=== PATIENT | male | born 1960 | race Caucasian/White ===

== ENCOUNTER → 2024-05-25 | Outpatient (CLI) | payer OTHER, SELFPAY ==
--- NOTE | 2024-05-25 16:30 | RAD_ITS ---
INDICATION: OA EXAMINATION/TECHNIQUE: X-RAY - RIGHT XR Elbow Min 3 Views COMPARISON: No relevant prior comparison study available FINDINGS: SOFT TISSUES: No soft tissue swelling or gas. No radiopaque foreign body. BONES/JOINTS: There is no displacement of the anterior or posterior fat pads. No acute fracture or subluxation. Normal alignment. There are moderate degenerative changes. No sclerotic or destructive changes observed. RAD/Elbow min 3 Views IMPRESSION: Degenerative changes. Electronically Signed: Criselda Bunn MD at 17:31 EDT ,
--- NOTE | 2024-05-25 16:30 | RAD_ITS ---
HISTORY: OA. TECHNIQUE: XR Foot Min 3 Views. COMPARISON: None. FINDINGS: BONES : No acute fracture identified. Calcaneal spurs with soft tissue swelling of the heel. JOINTS: No dislocation. Mild degenerative change. Osteophytes with chronic ossification laterally. RAD/Foot min 3 Views IMPRESSION: No acute fracture or dislocation identified in the left foot. Degenerative change. Calcaneal enthesopathy. Soft tissue swelling. Electronically Signed: Indy Jones MD at 10:28 EDT ,
--- NOTE | 2024-05-25 16:30 | RAD_ITS ---
STUDY: X-RAY - RIGHT ANKLE REASON FOR EXAM: Male, 63 years old. Pain and stiffness TECHNIQUE: 3 view(s) of the ankle. COMPARISON: None. FINDINGS: Normal visualized distal tibia and fibula. Normal medial and lateral malleoli. Normal tibiotalar articulation and ankle mortise. Normal visualized talus. Prominent calcaneal spurs The visualized subtalar, talonavicular, calcaneocuboid and tarsal articulations are normal. Posterior soft tissue swelling RAD/Ankle min 3 Views IMPRESSION: Prominent calcaneal spurs with posterior soft tissue swelling. No demonstrated fracture or suspicious osseous lesion Electronically Signed: Josesito Nolasco MD at 18:00 EDT ,
--- NOTE | 2024-05-25 16:30 | RAD_ITS ---
EXAM: XR RIGHT FOOT COMPLETE, 3 OR MORE VIEWS CLINICAL INDICATION: OA TECHNIQUE: Frontal, lateral and oblique views of the right foot. COMPARISON: No relevant prior studies available. FINDINGS: BONES/JOINTS: No acute fracture or subluxation. No periarticular erosion or demineralization to suggest inflammatory arthritis. Prominent posterior calcaneal enthesopathy. SOFT TISSUES: Focal soft tissue swelling adjacent to the fifth MTP joint. No radiopaque foreign body. RAD/Foot min 3 Views IMPRESSION: No acute bone or joint abnormality. As above. Electronically Signed: David Lopez MD at 11:31 EDT ,
--- NOTE | 2024-05-25 16:30 | RAD_ITS ---
HISTORY: OA. TECHNIQUE: XR Ankle Min 3 Views. COMPARISON: None. FINDINGS: BONES : No acute fracture identified. Calcaneal enthesopathy present with soft tissue swelling of the heel. JOINTS: No dislocation. Mild degenerative change with osteophytes at the ankle. RAD/Ankle min 3 Views IMPRESSION: Mild degenerative changes of the left ankle without acute fracture or dislocation identified. Calcaneal spurs with soft tissue swelling of the heel. Electronically Signed: Indy Jones MD at 10:26 EDT ,
--- NOTE | 2024-05-25 16:30 | RAD_ITS ---
HISTORY: OA. TECHNIQUE: XR Knee 3 Views. COMPARISON: None. FINDINGS: BONES : No acute fracture identified. Small osteophytes noted. JOINTS: No dislocation. Joint spaces maintained. Mild joint effusion. RAD/Knee 3 Views IMPRESSION: No acute fracture or dislocation identified in the left knee. Mild joint effusion with very mild degenerative change. Electronically Signed: Indy Jones MD at 10:28 EDT ,
== END | disposition home or self-care (01) ==
LOC: RAD 16:23
PROVIDERS: PCP Family Medicine Geriatric Medicine; Referring Provider Family Medicine Geriatric Medicine; Visit Provider Family Medicine Geriatric Medicine
DX: M19.071 Primary osteoarthritis, right ankle and foot (principal); B35.1 Tinea unguium; M25.521 Pain in right elbow; M25.562 Pain in left knee
CPT/HCPCS: 73080; 73562; 73610; 73630

== ENCOUNTER → 2024-06-30 | Outpatient (CLI) | payer OTHER, SELFPAY ==
--- NOTE | 2024-06-30 07:32 | MRI_ITS ---
INDICATION: pain, rule out ACL or meniscus tear, LT KNEE PAIN AND WEAKNESS EXAMINATION: MRI - LEFT MR LE Joint W/O Contrast TECHNIQUE: Multiplanar and multisequence MR images of the LEFT knee. IV Contrast Dosage and Agent: None. COMPARISON: Prior study dated: Knee Radiographs from 05/25/2024 FINDINGS: BONE: There is marrow edema along the medial tibial plateau. No fracture line identified. There is also marrow edema seen anteriorly with cyst formation at the medial femoral condyle. JOINT: Moderate joint effusion. No synovial thickening. MUSCLES: Unremarkable. MENISCI: There is a complex tear at the posterior horn of the medial meniscus. There is associated extrusion of the medial meniscal body, extending 0.4 cm from the margin of the bone. The lateral meniscus is intact. CRUCIATE LIGAMENTS: Anterior and posterior cruciate ligaments are intact. COLLATERAL LIGAMENTS: Medial collateral ligament and lateral collateral ligamentous complex, inclusive of the popliteal tendon, are intact. CARTILAGE: Mild chondral thinning at the medial compartment. Cartilage loss at the medial femoral condyle and the region of the trochlea with underlying cyst formation. OTHER SOFT TISSUES: Meng''s cyst identified measuring approximately 2.8 x 1 x 2.7 cm. MRI/Lower Ext Joint Only (Routine) IMPRESSION: Complex tear of the posterior horn of the medial meniscus with medial body extrusion. No ligamentous tear. Mild marrow edema of the medial tibial plateau. Mild degenerative change at the medial compartment. Cyst formation with cartilage loss at the medial femoral condyle. Electronically Signed: Omid Whitehead MD at 9:08 EDT ,
[2024-06-30 08:19] LABS: ALB/GLOB Ratio 0.9 RATIO (0.9-2.4); AST(SGOT) 21 U/L (15-37); Alanine Aminotransfer ALT/SGPT 26 U/L (16-61); Albumin, Serum 3.6 g/dL (3.2-5.0); Alkaline Phosphatase 96 U/L (45-117); Anion Gap 5 (5-15); BUN 17 mg/dL (7-18); Calcium,Total 8.7 mg/dL (8.5-10.1); Chloride 107 mmol/L (98-107); Creatinine, Serum 1.31 mg/dL (0.70-1.30); EST Glomerular Filtration Rate 59 mL/min (>60); Est Glom Filt Rate - Afr Amer 71 mL/min (>60); Globulin 3.8 g/dL (2.2-4.2); Glucose 106 mg/dL (74-106); Potassium 3.7 mmol/L (3.5-5.1); Protein, Total 7.4 g/dL (6.4-8.2); Sodium Level 138 mmol/L (136-145)
[2024-07-02 06:37] LABS: PSA, Free 1.35 ng/mL; PSA, Free % 17.2 % (.)
== END | disposition home or self-care (01) ==
PROVIDERS: PCP Family Medicine Geriatric Medicine; Referring Provider Orthopaedic Surgery Sports Medicine; Visit Provider Orthopaedic Surgery Sports Medicine
DX: E78.5 Hyperlipidemia, unspecified (principal); R97.20 Elevated prostate specific antigen [PSA]
CPT/HCPCS: 36415; 73721; 80053; 84153; 84154

== ENCOUNTER 2024-07-17 08:31 | Outpatient (RCR) | payer OTHER, SELFPAY ==
--- NOTE | 2024-07-19 16:22 | HP.PTEVAL_ITS ---
Patient's Visit Information Visit Information Visit Information: ROMAN WHITTEN is a 63 year old M referred to Physical Therapy by Dr. Dav Richter MD with a diagnosis of L knee pain. Date of Evaluation: 07/17/24 Physical Therapist: Emiliano Monahan DPT Visit Plan Frequency: 1x/Week Duration: 6 Weeks Plan: I gave Roman some strengthening and stretching exercises of both quads and HS as well as hip abductor strengthening. Pt. is to complete on own at home and come back to PT if not improving. Subjective Subjective: Pt. is here today for his initial evaluation with diagnosis of L knee pain. Pt. did have an MRI showing a complex posterior horn meniscal tear. 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 Pt. stepping in a hole in may and caused him to short step on his L leg. He felt a pop. Later than month he tried to jog and had intense pain. Pt. reports now he doesn't really have much pain, unless he deep squats. No pain at rest. 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 No N/T noted either. Pt. is hopeful to get back to doing all work related activities without intermittent pain. Objective Objective: POSTURE: Pt. has farily normal posture in stance. Pt. has increased B knee varus postioning. He has very high arches in B feet. with increased supination noted. Normal wt. shifting between BLEs. PALPATION: Pt. has mild soreness at posterior medial knee compartment, but mini mal. Pt. toro some slight swelling throughout L knee. NEURO: Normal sensation and DTR of BLEs. Pt. is able to rise on heels and toes without issues. ROM: L knee 0-0-124deg. Pt. has good HS length, slight tightness in his L quad. R knee: 0-0-128deg. Pt. has normal HS length. MMT: pt. has good strength throughout BLEs. No marked weakness noted. GAIT: Pt. has fairly normal, He does have slight increase in B foot supination during stance phase. STIARS: Normal throughout. Balance/Special Test Scores Lower Extremity Functional Score: 71 Goals Goal 1:: LTG: Pt. to be I with HEP. Goal Time Frame: 2-4 Weeks Goal 2:: LTG: Pt. to be able to work without increase in L knee pain Goal Time Frame: 2-4 Weeks Goal 3:: LTG: Pt. to complete all recreational activities without limitations. Goal Time Frame: 2-4 Weeks Rehabilitation Potential Physical Therapy Diagnosis: Pt. has signs and symptoms consistent with L knee pain secondary to L posterior horn meniscal tear. Pt. has overall good strength in his LEs and decent ROM. Pt. does have some increased stability at his ankles along with very high arches. Pt. has signs and some hypomobility, but more so intermittent medial knee pain. Rehabilitation Potential: Excellent Anticipated Interventions Patient/Client Instruction: Educate patient on: Condition, Plan of Care, Risk Factors and Benefits of Fitness Program For the Purpose of:: To improve self management, To prevent re-injury, To improve ability to perform tasks related to life management and To improve tolerance to ADL's Therapeutic Exercise to Include: Strength training, Power training, Flexibilty training, Passive ROM and Active ROM For the Purpose of:: To decrease pain, To decrease swelling/inflammation, To increase ROM, To improve nutrient delivery to tissue, To increase oxygenation perfusion, To improve muscle performance and motor function and To increase flexibility/ROM Text: Thank you for the opportunity to evaluate your patient. For Medicare and Medicare HMO plans, please review the plan of care and approve it. It will need to be FAXED BACK to us at [phone] for Medicare purposes. For Medicare only, by signing this I certify the plan of care. Please let me know if there are questions or concerns regarding this plan of care. Physician Signature: Date:
== END 2024-07-17 19:00 | disposition home or self-care (01) ==
LOC: PT 08:31
PROVIDERS: PCP Family Medicine Geriatric Medicine; Referring Provider Orthopaedic Surgery Sports Medicine; Visit Provider Orthopaedic Surgery Sports Medicine
DX: S83.242D Other tear of medial meniscus, current injury, left knee, subsequent encounter (principal); M17.12 Unilateral primary osteoarthritis, left knee; M25.562 Pain in left knee
CPT/HCPCS: 97161

== ENCOUNTER → 2024-08-07 | Outpatient (CLI) | payer OTHER, SELFPAY ==
--- NOTE | 2024-08-07 08:07 | MRI_ITS ---
EXAMINATION: MR Prostate WO/W Contrast COMPARISON: None CLINICAL HISTORY: 63 yo M with elevated PSA. Most recent PSA = 4.1 ng/ml on 06/02/2024 TECHNIQUE: Standard prostate MR protocol was used before and after administration of 22 cc of IV Clariscan. FINDINGS: Prostate volume: 92 cc PSA density: 0.04 ng/ml2 Length of membranous urethra: 20 mm Post-biopsy hemorrhage: Yes Multiparametric MR evaluation: Heterogeneous appearance of the central gland is consistent with benign prostatic hyperplasia. Lesion 1: LOCATION - in the left posterior peripheral zone at mid gland there is a irregularly-shaped focal T2 hypointensity measuring approximately 1.3 x 0.8 x 1.4 cm. It is mild to moderately bright on DWI and moderately dark on ADC map. T2 - 3 DWI - 3 DCE - inconclusive Overall PI-RADS v2 score = 3 Capsular margin and neurovascular bundle: Not involved Seminal vesicles: Not involved. Lymph nodes: No lymphadenopathy in the field of view. Bones: No suspicious lesions in the field of view. MRI/Pelvis W/WO Contrast IMPRESSION: 1.4 cm KY-3 lesion in the left posterior PZ at mid gland. - No evidence of macroscopic extracapsular extension. - No evidence of seminal vesicle invasion. - No lymphadenopathy. - No suspicious bone lesions. Benign prostatic hyperplasia. Electronically Signed: Grady Smith MD at 11:45 EDT ,
[2024-08-07 08:38] LABS: CREATININE FINGERSTICK 1.3 mg/dL (0.70-1.30); EGFR FINGERSTICK > 60.0000 mL/min (>60)
== END | disposition home or self-care (01) ==
PROVIDERS: PCP Family Medicine Geriatric Medicine; Referring Provider Urology; Visit Provider Urology
DX: R97.20 Elevated prostate specific antigen [PSA] (principal)
CPT/HCPCS: 72197; A9575

== ENCOUNTER → 2024-11-27 | Outpatient (CLI) | payer OTHER, SELFPAY ==
[2024-11-27 09:52] LABS: Absolute Neutrophil Count 2.2 X10^3/uL (2.0-7.7); Basophil# 0.05 X10^3/uL; Basophil% 1.2 % (0-1); Eosinophil# 0.11 X10^3/uL; Eosinophils% 2.6 % (0-5); Hematocrit 50.2 % (40-54); Hemoglobin 16.4 g/dL (13.0-16.5); Lymphocyte % 28.7 % (19-41); Mean Corp Hgb Conc 32.7 g/dL (32-36); Mean Corpuscular Hgb 27.8 pg (27.0-32.0); Mean Corpuscular Volume 85.1 fL (80-94); Mean Platelet Vol. 10.5 fl (6.2-12.0); Monocyte# 0.58 X10^3/uL; Monocyte% 13.9 % (0-10); NRBC Flagged by Analyzer 0 % (0-5); Neutrophil # 2.23 X10^3/uL (2.7-7.7); Neutrophil % 53.4 % (47-70); Platelet Count 226 K/mm3 (150-450); RBC Distribution Width CV 13.2 % (11.6-14.6); RBC Distribution Width SD 40.8 fl (35.1-43.9); White Blood Count 4.2 K/mm3 (4.4-11.0)
[2024-11-27 10:25] LABS: ALB/GLOB Ratio 0.9 RATIO (0.9-2.4); AST(SGOT) 26 U/L (15-37); Alanine Aminotransfer ALT/SGPT 40 U/L (16-61); Albumin, Serum 3.6 g/dL (3.2-5.0); Alkaline Phosphatase 98 U/L (45-117); Anion Gap 4 (5-15); BUN 13 mg/dL (7-18); BUN/Creat Ratio 11.1 RATIO (10-20); Calcium,Total 8.9 mg/dL (8.5-10.1); Chloride 107 mmol/L (98-107); Cholesterol 227 mg/dL (200); Creatinine, Serum 1.17 mg/dL (0.70-1.30); EST Glomerular Filtration Rate 67 mL/min (>60); Est Glom Filt Rate - Afr Amer 81 mL/min (>60); Globulin 4.1 g/dL (2.2-4.2); Glucose 94 mg/dL (74-106); High Density Lipoprotein 51 mg/dL; Potassium 4.2 mmol/L (3.5-5.1); Protein, Total 7.7 g/dL (6.4-8.2); Sodium Level 139 mmol/L (136-145); Triglycerides 158 mg/dL; Very Low Density Lipoprotein 32 mg/dL (5-40)
== END | disposition home or self-care (01) ==
PROVIDERS: PCP Family Medicine Geriatric Medicine; Visit Provider Family Medicine Geriatric Medicine
DX: E78.5 Hyperlipidemia, unspecified (principal); R53.83 Other fatigue
CPT/HCPCS: 36415; 80053; 80061; 84443; 85025

== ENCOUNTER 2024-12-20 05:56 | Day surgery (SDC) | payer OTHER, SELFPAY ==
[2024-12-20] VITALS (8 sets, daily range): BP systolic 119–138; BP diastolic 81–92; PULSE 72–89; RESP 12–16; TEMP 36.2–36.8; O2SAT 94–100; BMI 32.5
--- NOTE | 2024-12-20 06:30 | EKG12_ITS ---
Test Reason : PRE OP Blood Pressure : */* mmHG Vent. Rate : 77 BPM Atrial Rate : 77 BPM P-R Int : 168 ms QRS Dur : 112 ms QT Int : 380 ms P-R-T Axes : 47 49 27 degrees QTcB Int : 430 ms Normal sinus rhythm Incomplete right bundle branch block Borderline ECG No previous ECGs available Confirmed by Jorge Alberto Rankin ([id number]), greeting card editor BARTOLOME PRECIADO ([id number]) on 12/25/2024 10:49:03 AM Referred By: Ryder Parada Confirmed By: Jorge Alberto Rankin
[2024-12-20] MEDS: 0.9% Normal Saline (1000mL) 1,000 ML 15 ML IV (06:31)
--- NOTE | 2024-12-20 07:12 | PCM.HP.STD ---
HPI - General General Date of Admission: 12/20/24 Date of Service: 12/20/24 Chief Complaint: Umbilical hernia HPI Narrative ROMAN WHITTEN, is a 64 M who presents for elective repair of an umbilical hernia. He was recently seen in the office. Seems to be a fairly small hernia amenable to primary repair [facility] Medical History Prostate disease Arthritis Non-smoker History of pain when walking Osteoarthritis of left knee Tear of medial meniscus of left knee Left knee pain Home Medications ?Medication ?Instructions ?Recorded ?Last Taken ?Type NK 12/07/24 Unknown History Allergy/AdvReac Type Severity Reaction Status Date / Time No Known Allergies Allergy Verified 12/13/24 10:18 Family History Father Diabetes Heart disease Mother Rheumatoid arthritis Surgical History Hx of colonoscopy H/O kidney donation Social History household members: spouse Smoking Status: Never smoker alcohol intake: never Vital Signs Vital Signs Vital Signs: 12/20/24 06:22 12/20/24 06:22 Temperature 98.3 F Temperature Source Temporal Pulse Rate 82 Respiratory Rate 16 Respiratory Pattern Normal Blood Pressure 138/92 H Blood Pressure Mean 107 Blood Pressure Source Monitor Blood Pressure Position Supine Blood Pressure Location Right Arm Pulse Ox 100 Oxygen Delivery Method Room Air Weight Weight: 246 lb 14.684 oz Body Mass Index (BMI) 32.5 Physical Exam Narrative He is alert and oriented x 3. He is in no acute distress. Abdomen is soft, nontender nondistended. Hernia is reduced with the patient laying supine Assessment & Plan Assessment/Plan (1) Umbilical hernia: PLAN: Plan The patient is a 64-year-old male with an umbilical hernia. I have offered him umbilical hernia repair. We discussed the details of the planned procedure and he wishes to proceed. Surgery will begin momentarily
--- NOTE | 2024-12-20 07:15 | PRE.ANES_ITS ---
ASA Classification* ASA Classification ASA Classification: 2 Assessment & Plan Anesthesia* Anesthesia Assessment Anesthesia Assessment: Discussed sedation and/or anesthesia options, risks, benefits, and alternatives with patient/parents/legal guardian/POA. Questions invited. The patient/parents/legal guardian/POA seems to understand and agrees to proceed with anesthesia plan. Reviewed the physical assessment, medical history, allergy history and patient home medications list prior to surgery/procedure/anesthetic and documented any changes. Performed airway and anesthesia risk assessments. Anesthesia Type Anesthesia Type: General History Source History Obtained from:: Patient and Chart Anesthesia Focused Assessment* Temperature: 98.3 F Pulse Rate: 82 Blood Pressure: 138/92 Respiratory Rate: 16 Pulse Ox: 100 Oxygen Delivery Method: Room Air Airway Assessment Mouth opens: >3 cm Mallampati Score: III Teeth Condition: Intact Neck Range of motion (ROM): Full ROM Focused Labs Anesthesia Preop lab: CBC WBC 4.2 K/mm3 (4.4-11.0) L 11/27/24 09:43 11/27/24 RBC 5.90 M/mm3 (4.6-6.2) 11/27/24 09:43 11/27/24 Hgb 16.4 g/dL (13.0-16.5) 11/27/24 09:43 11/27/24 Hct 50.2 % (40-54) 11/27/24 09:43 11/27/24 Plt Count 226 K/mm3 (150-450) 11/27/24 09:43 11/27/24 CHEMISTRY Potassium 4.2 mmol/L (3.5-5.1) 11/27/24 09:43 11/27/24 Sodium 139 mmol/L (136-145) 11/27/24 09:43 11/27/24 BUN 13 mg/dL (7-18) 11/27/24 09:43 11/27/24 Creatinine 1.17 mg/dL (0.70-1.30) 11/27/24 09:43 11/27/24 Glucose 94 mg/dL (74-106) 11/27/24 09:43 11/27/24 TSH 1.830 uIU/mL (0.358-3.740) 11/27/24 09:43 11/02 05/25 COAG Pre-Assessment Diagnosis/Proposed Procedure Planned Operative Procedure(s): OPEN UMBICIAL HERNIA REPAIR Anesthesia History 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 When Was Last Pacemaker Check QUESTION #4 FULL TEXT: You/Your Family Experience fever (hyperthermia) with Anesthesia Last Oral Intake Last Oral intake: Last Oral Intake NPO since 02:00 12/20/24 06:22 Meds taken in AM with sips of No 12/20/24 06:22 water? Meds patient instructed to take am of surgery PONV PONV - coal weigher: PONV - coal weigher Female No 12/13/24 10:20 HX of Motion Sickness No 12/13/24 10:20 HX of N/V After Surgery No 12/13/24 10:20 Non-Smoker Yes 12/13/24 10:20 Duration of Surgery greater Yes 12/13/24 10:20 than 60 minutes Number of Risk Factors 2 12/13/24 10:20 PONV Score Moderate Risk 12/13/24 10:20 Height & Weight Height & Weight: Anesthesia: Height & Weight Height 6 ft 1 in 12/20/24 06:22 Weight: 112 kg 12/20/24 06:22 Body Mass Index (BMI) 32.5 12/20/24 06:22 Respiratory Assessment Respiratory Assessment - coal weigher: Respiratory Tract Infection Hx - coal weigher Hx Respiratory Tract Infection No 12/13/24 10:20 STOP Sleep Apnea STOP Sleep Apnea - coal weigher: STOP Sleep Apnea - coal weigher Hx Hypertension No 12/13/24 10:20 Hx Sleep Apnea No 12/13/24 10:20 CPAP BIPAP Do you snore loudly (louder Yes 12/13/24 10:20 than talking or can be heard Do you often feel tired/ No 12/13/24 10:20 fatigued/ sleepy during daytime? Has anyone observed you stop No 12/13/24 10:20 breathing during sleep? STOP Results Negative 12/13/24 10:20 QUESTION #5 FULL TEXT : Do you snore loudly (louder than talking or can be heard through closed doors)? 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 Specify any problems Hx of Preganancy in last 3 N/A 12/13/24 10:20 Months Nurse Filling Out Transfusion DSCHRIBER 12/13/24 10:20 & Questions: Date: 12/13/24 12/13/24 10:20 Time: 10:21 12/13/24 10:20 Patient unable to answer at this time (ie. confused, unrespo /Reproduction History /Reproductive History - coal weigher: /Reproductive Hx- coal weigher Hx Now No 12/13/24 10:20 Gestational Age (in weeks): EDC: Hx Hx Para Hx Section SAB No 12/13/24 10:20 Active Medications Active Medications: Current Medications Generic Name Dose Route Start Last Admin Trade Name Freq PRN Reason Stop Dose Admin Sodium Chloride 1,000 mls @ 15 mls/hr 12/20/24 06:20 12/20/24 06:31 IV 12/25/24 19:39 15 mls/hr .Q48H JAYANT Administration Protocol PFSH Medical History Prostate disease Arthritis Non-smoker History of pain when walking Osteoarthritis of left knee Tear of medial meniscus of left knee Left knee pain Home Medications ?Medication ?Instructions ?Recorded ?Last Taken ?Type NK 12/07/24 Unknown History Allergy/AdvReac Type Severity Reaction Status Date / Time No Known Allergies Allergy Verified 12/13/24 10:18 Family History Father Diabetes Heart disease Mother Rheumatoid arthritis Surgical History Hx of colonoscopy H/O kidney donation Social History household members: spouse Smoking Status: Never smoker alcohol intake: never Review of Systems (Anesthesia) ROS Narrative System reviewed and no additional complaints, except as documented.
--- NOTE | 2024-12-20 07:30 | HERN_PTH ---
PATIENT: ROMAN WHITTEN LOC: [facility] – [place] U#:[id number] AGE/SX: 64/M ROOM: RE12/20/[address]: Dr. Ryder Parada MD : 1960 BED: DIS: 12/20/2024 SPEC #: [id number] RECD: 12/20/24 11:03 STATUS: IRON RERico #: [id number] BETO: 12/20/24 07:[address]: Ryder Parada DEPT: SURGICAL PATHOLOGY RECD BY: Melissa Hamilton ENTERED: 12/20/24 12:10 SP TYPE: Hernia OTHR DR: Dr. Willie Cárdenas MD Tissues: HERNIA Procedures: Surgery Specimen Level II HEADER OPERATION: Hernia, umbilical repair PRE-OP DIAGNOSIS: Umbilical hernia TISSUE SUBMITTED: Hernia sac MICROSCOPIC DIAGNOSIS Hernia sac: A piece of fibroadipose and fibroconnective tissue, consistent with hernia sac with reactive changes. SJ.mr 12/21/2024 MICROSCOPIC DESCRIPTION Slides are reviewed. GROSS DESCRIPTION Received in fixative is one container labeled with the patient's name and designated Hernia sac. The specimen consists of an irregular piece of yellow adipose tissue measuring 4.2 x 1.5 x 1cm. No mass lesion is identified. Piercing Specialist sections are submitted in one cassette. EMY. 12/20/2024 TC:5 CPT:08545
[2024-12-20] MEDS: Bupiv/Epi 0.25% 30 ML Vial (07:52)
--- NOTE | 2024-12-20 08:00 | DCINST_ITS ---
Discharge Instructions Diet Discharge Diet: Light diet - advance as tolerated Activity Discharge Activity: Return to Normal Activity and May Shower May shower in (days): 1 Ice area for (Minutes): 30 Lifting Restrictions: No lifting over 20 pounds for 6 weeks Dressing / Incision Call your doctor if your incision/area has: Continuous Slow Oozing, Sudden In creased Bleeding, Increased Pain/ Swelling, Increased Redness, Foul Smelling Discharge and Swelling at the incision site Call your doctor if you observe: Fever of 101 or Higher Cleanse incision/area with: Soap & Water Drain: [place] Additional Dressing/Incision Instructions:: wear binder for comfort; remove dressing before first shower Follow Up Care Please Follow Up With: Ryder Parada MD When: 2 weeks Test Results: Test results from this visit will be discussed in further detail at your follow- up appointment, if applicable. Discharge Plan Admission Primary Reason for Your Visit: umbilical hernia repair Attending Provider: Ryder Parada Primary Care Provider: Willie Cárdenas Chi Instructions Print Language: Danish Discharge Orders/Prescriptions Prescriptions: New oxycodone-acetaminophen [Percocet] 5-325 mg tablet 1 tab PO Q8H PRN (Reason: pain) 3 Days Qty: 10 0RF Referrals / Follow Up: Willie Cárdenas Chi, MD [Primary Care Provider] - Disposition Disposition (needs filled in before D/C Order can be placed): Home, Self Care
--- NOTE | 2024-12-20 08:04 | OP.PCM_ITS ---
Problems Associated Problem List Diagnoses (1) Umbilical hernia: Procedures Digestive 40xxx-49xxx: 29256 RPR AA HRN 1ST < 3 CM [facility] Operative Report (Standard) Operative Information Date of Procedure: 12/20/24 Pre-Operative Diagnosis: umbilical hernia Post-Operative Diagnosis: umbilical hernia Surgery/Procedure Performed: Open umbilical hernia repair engineering program analyst: Yes Flakeboard Line Tender: Antoinette Sellers Tasks completed by assistant professor in family studies: Closing and Retracting Additional assistant manager of operations?: No Type of Anesthesia: General and Local RN Documented Start/Stop Times: Operation Date: 12/20/24 07:30 Case Time Into Pre-Op 12/20/24 06:16 Out of Pre-Op 12/20/24 07:25 Anesthesia Start 12/20/24 07:28 Into Room 12/20/24 07:28 Procedure Start 12/20/24 07:43 Procedure End 12/20/24 08:02 Procedure Start Time: 07:43 Procedure Stop Time: 08:02 Select all DRAINS/GRAFTS/IMPLANTS that apply: None Estimated Blood Loss: 0 mL Fluids Replaced: None Specimen collected: Yes Description of specimen(s) removed: Hernia sac Description of surgery: The patient is a 64-year-old male who presented to the office recently with an umbilical hernia. This seemed relatively small. I offered him an open primary repair. We discussed the details of the planned procedure including the risks benefits and alternatives and he wished to proceed. He was brought to the operating room today following informed consent. He was placed supine on the operative table with arms outstretched on arm boards. General anesthesia was induced. Once adequately anesthetized the abdomen was then prepped and draped in the usual sterile manner. Local anesthetic was infiltrated into the area around the umbilicus. A curvilinear incision was made around the superior aspect of the umbilicus. Bovie electrocautery was then used dissect down through subcutaneous tissues. The fat-containing hernia was readily visible. The skin of the umbilicus was then detached off the underlying fascia carefully using a #15 blade. The skin was encircled with a hemostat and this was used to armature winder helper repair this dissection. The fascial defect was cleared of the hernia sac. The edges were freshened. The fascial defect was about 6 to 7 mm at most. Fascial quality was good. The fascia was then closed using 0 Nurolon placed in interrupted manner. 3 sutures were placed in this manner. This closed the fascial defect nicely. Hemostasis was excellent throughout the entire surgery. The umbilical skin was then reaffixed the underlying fascia using 3-0 Vicryl. 3-0 Vicryl was also used to reapproximate the subdermal layer. Finally, 4-0 Vicryl was run in the skin. Dermabond skin glue was applied as dressing. A cottonball as well as a OpSite was also applied along with an abdominal binder. Patient was awakened from anesthesia and taken to recovery in good condition. A [employer] [place] was utilized as a music assistant. Her role included skin retraction, and assistance with skin closure and dressing placement Surgical Findings: 6 mm fascial defect containing fat Complications Complications: No Admit VTE Documentation VTE Present on Admission: No VTE Mechan Device Prophylaxis: SCD's VTE Pharm Prophylaxis ordered?: No Reason prophylaxis not ordered: Treatment Not Indicated
--- NOTE | 2024-12-20 08:12 | PCM.POST.ANE ---
Anesthesia: Postop Eval I Current Vital Signs Temperature: 97.4 F Pulse Rate: 85 Blood Pressure: 124/87 Respiratory Rate: 12 Pulse Ox: 94 Oxygen Delivery Method: Room Air Assessment Airway patent: Yes Spontaneous unlabored respirations: Yes Mental status: Awake and Calm nausea: No Vomiting: No Anesthesia Complication: No Fluid Hydration Crystalloid volume administer (ml): 600 Total IV fluid infused: 600 Progress Note Anesthesia document: Postop Eval 1 completed: Yes
--- NOTE | 2024-12-20 09:12 | POSTOPAN2_ITS ---
Anesthesia Postop Eval I Sum Postop Eval Completion status Anesthesia document: Postop Eval 1 completed: Yes Anesthesia Postop Eval I Summary Anesthesia Postop Eval I Summary: Anesthesia Postop Eval I: Assessment Summary Airway patent Yes 12/20/24 08:13 [email or web address] Spontaneous unlabored Yes 12/20/24 08:13 LOADER [email or web address] respirations Mental status Awake,Calm 12/20/24 08:13 LOADER [email or web address] nausea No 12/20/24 08:13 LOADER [email or web address].[email or web address] Vomiting No 12/20/24 08:13 LOADER [email or web address].[email or web address] Anesthesia Postop Eval I: Fluid Summary Crystalloid volume administer 600 12/20/24 08:13 LOADER [email or web address] (ml) Colloids volume administered ( ml) Blood Product volume administered (ml) Total IV fluid infused 600 12/20/24 08:13 LOADER [email or web address].[email or web address] Anesthesia Postop Eval I: Summary Notes Anesthesia Complication No 12/20/24 08:13 LOADER [email or web address].[email or web address] Anesthesia Complication Comment: Post-operative progress note Anesthesia: Postop Eval II Evaluation Mental status: Awake and Calm Pain Level: 1 nausea: No Vomiting: No Complications Anesthesia Complication: No
--- NOTE | 2024-12-20 09:12 | PCM.POSTANE2 ---
Anesthesia Postop Eval I Sum Postop Eval Completion status Anesthesia document: Postop Eval 1 completed: Yes Anesthesia Postop Eval I Summary Anesthesia Postop Eval I Summary: Anesthesia Postop Eval I: Assessment Summary Airway patent Yes 12/20/24 08:13 [email or web address] ADVISOR.[email or web address] Spontaneous unlabored Yes 12/20/24 08:13 CLINICAL ADVISOR.[email or web address] respirations Mental status Awake,Calm 12/20/24 08:13 CLINICAL ADVISOR.[email or web address] nausea No 12/20/24 08:13 CLINICAL ADVISOR.[email or web address] Vomiting No 12/20/24 08:13 CLINICAL ADVISOR.[email or web address] Anesthesia Postop Eval I: Fluid Summary Crystalloid volume administer 600 12/20/24 08:13 CLINICAL ADVISOR.[email or web address] (ml) Colloids volume administered ( ml) Blood Product volume administered (ml) Total IV fluid infused 600 12/20/24 08:13 CLINICAL ADVISOR.[email or web address] Anesthesia Postop Eval I: Summary Notes Anesthesia Complication No 12/20/24 08:13 CLINICAL ADVISOR.[email or web address] Anesthesia Complication Comment: Post-operative progress note Anesthesia: Postop Eval II Evaluation Mental status: Awake and Calm Pain Level: 1 nausea: No Vomiting: No Complications Anesthesia Complication: No
== END 2024-12-20 10:09 | disposition home or self-care (01) ==
LOC: SDC 06:03 → AC 06:22
PROVIDERS: PCP Family Medicine Geriatric Medicine; Referring Provider Surgery; Visit Provider Surgery
PROC: (CPT 49591; principal; 2024-12-20 07:15)
DX: K42.9 Umbilical hernia without obstruction or gangrene (principal); M17.12 Unilateral primary osteoarthritis, left knee
CPT/HCPCS: 49591; 00752; 88302; 93005; J2405

== ENCOUNTER → 2025-05-28 | Outpatient (CLI) | payer OTHER, SELFPAY ==
[2025-05-28 09:28] LABS: Hematocrit 48.1 % (40-54); Hemoglobin 15.8 g/dL (13.0-16.5); Immature Granulocytes Count 0.020 X10^3/uL (0.0-0.0); Mean Corp Hgb Conc 32.8 g/dL (32-36); Mean Corpuscular Volume 84.1 fL (80-94); Mean Platelet Vol. 11.4 fl (6.2-12.0); NRBC Flagged by Analyzer 0 % (0-5); Platelet Count 226 K/mm3 (150-450); RBC Distribution Width CV 13.5 % (11.6-14.6); RBC Distribution Width SD 41.1 fl (35.1-43.9); Red Blood Count 5.72 M/mm3 (4.6-6.2); White Blood Count 5.4 K/mm3 (4.4-11.0)
[2025-05-28 10:10] LABS: Cholesterol 216 mg/dL (<=200); Low Density Lipoprotein Calc. 131 mg/dL; PSA,Total - Annual Screen 4.26 ng/mL (0.02-4.00); Triglycerides 203 mg/dL; Very Low Density Lipoprotein 41 mg/dL (5-40); cholesterol:hdl ratio screen 4.88
[2025-05-28 10:12] LABS: AST(SGOT) 25 U/L (<=37); Alanine Aminotransfer ALT/SGPT 23 U/L (<=46); Albumin, Serum 4.1 g/dL (3.4-4.8); Alkaline Phosphatase 98 U/L (40-129); Anion Gap 12 (5-15); BUN 13 mg/dL (4-19); BUN/Creat Ratio 10.6 RATIO (10-20); Calcium,Total 8.8 mg/dL (7.6-11.0); Carbon Dioxide 21.3 mmol/L (21.0-32.0); Chloride 107 mmol/L (98-108); Globulin 2.9 g/dL (2.2-4.2); Glucose 106 mg/dL (70-99); Potassium 3.9 mmol/L (3.3-5.1)
[2025-05-28 17:15] LABS: Xtra Tube Kwok EXTRA TUBE
== END | disposition home or self-care (01) ==
LOC: POLAB3 09:11
PROVIDERS: PCP Family Medicine Geriatric Medicine; Visit Provider Family Medicine Geriatric Medicine
DX: I10 Essential (primary) hypertension (principal); E78.5 Hyperlipidemia, unspecified; Z12.5 Encounter for screening for malignant neoplasm of prostate
CPT/HCPCS: 36415; 80053; 80061; 84153; 84443; 85025; G0103